=== PATIENT | female | born 1990 | race Two or more races ===

== ENCOUNTER 2020-04-24 15:15 | Inpatient (IN) | payer OTHER ==
[~2020-04-24] VITALS: Ht 157.5 cm; Wt 60.9 kg
[2020-04-25] MEDS: LACTATED RINGERS 1,000 ML IV SCH ×3 (05:40→19:23)
[2020-04-25] MEDS ORDERED: D5%-LACTATED RINGERS 1,000 ML IV SCH (05:40)
[2020-04-25] MEDS ORDERED: OXYTOCIN 30U/ 0.9% NaCL 500ML 500 ML IV ONE (05:40)
[2020-04-25] MEDS ORDERED: OXYTOCIN 30U/ 0.9% NaCL 500ML 500 ML IV PRN (05:40)
[2020-04-25] MEDS ORDERED: TERBUTALINE 1 MG/ML, 1ML IVPush PRN (06:00)
[2020-04-25] MEDS ORDERED: TERBUTALINE 1 MG/ML, 1ML SQ PRN (06:00)
[2020-04-25] MEDS ORDERED: ALUMINUM/MAG/SIMETHICONE 30 ML UDC PO PRN (06:00)
[2020-04-25] MEDS ORDERED: FENTANYL PF 100 MCG/2ML IV PRN (06:00)
[2020-04-25] MEDS ORDERED: FENTANYL PF 100 MCG/2ML IVPush PRN (06:00)
[2020-04-25 06:02] VITALS: BP 107/61
[2020-04-25] MEDS ORDERED: MISOPROSTOL 25 MCG TABLET ONE ×3 (06:19→15:17)
[2020-04-25] MEDS ORDERED: NEWBORN KIT ONE (06:20)
[2020-04-25 06:45] LABS: BASOPHILS # (AUTO) 0.03 x10^3/uL (0-0.1); BASOPHILS % (AUTO) 0 % (0-1); EOSINOPHILS # (AUTO) 0.05 x10^3/uL (0-0.4); EOSINOPHILS % (AUTO) 1 % (1-7); LYMPHOCYTES # (AUTO) 2.15 x10^3/uL (1-3.4); LYMPHOCYTES % (AUTO) 24 % (22-44); MD NO; MEAN CORPUSCULAR HEMOGLOBIN 29.6 pg (27.0-34.8); MEAN CORPUSCULAR HGB CONC 32.6 g/dL (32.4-35.8); MEAN PLATELET VOLUME 8.8 fL (7.4-10.4); MONOCYTES # (AUTO) 0.56 x10^3/uL (0.2-0.8); MONOCYTES % (AUTO) 6 % (2-9); NEUTROPHILS # (AUTO) 6.13 x10^3/uL (1.8-6.8); NEUTROPHILS % (AUTO) 69 % (42-75); PLATELET COUNT 224 x10^3/uL (130-400); RED CELL DISTRIBUTION WIDTH 14.4 % (9.6-15.2)
[2020-04-25] MEDS: MISOPROSTOL 25 MCG TABLET VG PRN ×3 (06:50→15:20)
[2020-04-25] MEDS ORDERED: OXYTOCIN 30U/ 0.9% NaCL 500ML 500 ML ONE (19:17)
[2020-04-26 02:23] VITALS: BP 104/58
[2020-04-26] MEDS ORDERED: FENTANYL PF 100 MCG/2ML ONE (04:41)
[2020-04-26] MEDS: LACTATED RINGERS 1,000 ML IV SCH ×3 (05:15→23:16)
[2020-04-26] MEDS ORDERED: FENTANYL/BUPIV./NS/PF 250 ML EPIDCONT ONE (05:44)
[2020-04-26] MEDS ORDERED: BUPIVACAINE 0.25% ONE (05:54)
[2020-04-26] MEDS ORDERED: LACTATED RINGERS 1,000 ML IV SCH ×2 (06:25→13:16)
[2020-04-26] MEDS ORDERED: FENTANYL/BUPIV./NS/PF 250 ML EPIDCONT SCH (06:25)
[2020-04-26] MEDS ORDERED: EPHEDRINE 50 MG/ML, 1ML IVPush PRN ×2 (06:30→15:30)
[2020-04-26] MEDS ORDERED: LACTATED RINGERS 1,000 ML IVBOLUS PRN (06:30)
[2020-04-26] MEDS ORDERED: EPHEDRINE 50 MG/ML, 1ML ONE (06:33)
[2020-04-26] MEDS ORDERED: METOCLOPRAMIDE 5 MG/ML, 2ML ONE (11:18)
[2020-04-26] MEDS ORDERED: SODIUM CITRATE/CITRIC ACID 30 ML UDC ONE (11:19)
[2020-04-26] MEDS ORDERED: SODIUM CITRATE/CITRIC ACID 30 ML UDC PO ONE (11:30)
[2020-04-26] MEDS ORDERED: LACTATED RINGERS 1,000 ML IVBOLUS ONE (11:30)
[2020-04-26] MEDS ORDERED: METOCLOPRAMIDE 5 MG/ML, 2ML IV ONE (11:30)
[2020-04-26] MEDS ORDERED: LIDOCAINE/MPF 2%-EPI 1:200K, 20 ML ONE (11:48)
[2020-04-26] MEDS ORDERED: morphine SULFATE/PF 0.5 MG/ML, 10ML ONE (12:02)
[2020-04-26] MEDS ORDERED: WATER-INJECTION,STERILE 10 ML IV ONE (12:03)
[2020-04-26] MEDS ORDERED: DEXAMETHASONE 4 MG/ML, 1ML ONE (12:03)
[2020-04-26] MEDS ORDERED: ONDANSETRON 2MG/ML, 2ML ONE (12:03)
[2020-04-26] MEDS ORDERED: KETOROLAC 30 MG/1 ML ONE (12:03)
[2020-04-26] MEDS ORDERED: OXYTOCIN 10 UNITS/ML, 1ML ONE (12:03)
[2020-04-26] MEDS ORDERED: CEFAZOLIN 1,000 MG ONE (12:03)
[2020-04-26] MEDS ORDERED: SODIUM CHLORIDE 0.9% PF 10ML ONE (12:15)
[2020-04-26] MEDS ORDERED: PHENYLEPHRINE 10 MG/ML ONE (12:15)
[2020-04-26] MEDS ORDERED: MISOPROSTOL 200 MCG TABLET ONE (12:33)
[2020-04-26] MEDS ORDERED: MEPERIDINE/PF 100 MG/ML ONE (13:25)
[2020-04-26] MEDS ORDERED: IBUPROFEN 600 MG TABLET PO PRN (13:30)
[2020-04-26] MEDS ORDERED: MEPERIDINE/PF 25MG/0.5ML IVPush PRN (13:30)
[2020-04-26] MEDS ORDERED: MISOPROSTOL 200 MCG TABLET PR PRN (13:30)
[2020-04-26] MEDS ORDERED: MEPERIDINE/PF 50 MG/ML IM PRN (13:30)
[2020-04-26] MEDS ORDERED: ONDANSETRON 2MG/ML, 2ML IV PRN (13:30)
[2020-04-26] MEDS ORDERED: KETOROLAC 30 MG/1 ML IV SCH (13:30)
[2020-04-26] MEDS ORDERED: SIMETHICONE 80 MG CHEW TAB PO PRN (13:30)
[2020-04-26] MEDS ORDERED: METHYLERGONOVINE 0.2 MG/ML IM PRN (13:30)
[2020-04-26] MEDS ORDERED: MISOPROSTOL 200 MCG TABLET PR STA (13:39)
[2020-04-26] MEDS ORDERED: MISOPROSTOL 200 MCG TABLET PR ONE (14:00)
[2020-04-26] MEDS: OXYTOCIN 30U/ 0.9% NaCL 500ML 500 ML IV SCH ×2 (15:01→23:16)
[2020-04-26 15:30] VITALS: BP 123/80
[2020-04-26] MEDS ORDERED: NALOXONE 0.4 MG/ML, 1ML IV PRN (15:30)
[2020-04-26] MEDS ORDERED: ONDANSETRON 2MG/ML, 2ML IVPush PRN (15:30)
[2020-04-26] MEDS ORDERED: NO SEDATIVES, TRANQUILIZERS OR ANTIEMETICS XX SCH (15:30)
[2020-04-26] MEDS ORDERED: DIPHENHYDRAMINE 50 MG/ML, 1ML IV PRN (15:30)
[2020-04-26] MEDS ORDERED: morphine SULFATE 10 MG/ML, 1ML IVPush PRN (15:30)
[2020-04-26] MEDS: KETOROLAC 30 MG/1 ML IVPush SCH (19:18)
[2020-04-26] MEDS: DOCUSATE 100 MG CAPSULE PO PRN (19:18)
[2020-04-26 19:30] VITALS: BP 114/75
[2020-04-26 21:57] LABS: BASOPHILS # (AUTO) 0.02 x10^3/uL (0-0.1); BASOPHILS % (AUTO) 0 % (0-1); EOSINOPHILS % (AUTO) 0 % (1-7); LYMPHOCYTES # (AUTO) 1.45 x10^3/uL (1-3.4); LYMPHOCYTES % (AUTO) 13 % (22-44); MD NO; MEAN CORPUSCULAR HGB CONC 33.5 g/dL (32.4-35.8); MEAN CORPUSCULAR VOLUME 89.7 fL (80-100); MEAN PLATELET VOLUME 9.1 fL (7.4-10.4); MONOCYTES # (AUTO) 0.73 x10^3/uL (0.2-0.8); MONOCYTES % (AUTO) 7 % (2-9); NEUTROPHILS # (AUTO) 8.83 x10^3/uL (1.8-6.8); NEUTROPHILS % (AUTO) 80 % (42-75); PLATELET COUNT 195 x10^3/uL (130-400); RED BLOOD COUNT 3.81 x10^6/uL (3.82-5.3); RED CELL DISTRIBUTION WIDTH 14.4 % (9.6-15.2)
[2020-04-27 01:00] VITALS: BP 121/73
[2020-04-27] MEDS: KETOROLAC 30 MG/1 ML IVPush SCH ×4 (01:00→12:33)
[2020-04-27 04:00] VITALS: BP 93/55
[2020-04-27 07:25] VITALS: BP 97/60
[2020-04-27] MEDS: LACTATED RINGERS 1,000 ML IV SCH (09:16)
[2020-04-27] MEDS: OXYTOCIN 30U/ 0.9% NaCL 500ML 500 ML IV SCH (09:16)
[2020-04-27 12:00] VITALS: BP 119/72
[2020-04-27] MEDS: PRENATAL VIT/IRON/FA 1 EACH TABLET PO SCH (12:20)
[2020-04-27] MEDS: DOCUSATE 100 MG CAPSULE PO PRN (12:20)
[2020-04-27] MEDS: OXYcodone IR 5MG TABLET PO PRN ×5 (12:21→21:52)
[2020-04-27] MEDS ORDERED: IBUPROFEN 600 MG TABLET ONE (14:26)
[2020-04-27] MEDS: IBUPROFEN 600 MG TABLET PO PRN ×2 (14:32→21:52)
[2020-04-27 16:00] VITALS: BP 119/72
[2020-04-27 20:00] VITALS: BP 105/73
[2020-04-28] MEDS: IBUPROFEN 600 MG TABLET PO PRN ×2 (06:02→11:51)
[2020-04-28] MEDS: OXYcodone IR 5MG TABLET PO PRN ×2 (06:02→11:52)
[2020-04-28 08:00] VITALS: BP 107/68
[2020-04-28] MEDS: DOCUSATE 100 MG CAPSULE PO PRN (09:36)
[2020-04-28] MEDS: PRENATAL VIT/IRON/FA 1 EACH TABLET PO SCH (09:36)
[2020-04-28] MEDS ORDERED: IBUP-1222 PO (10:11)
[2020-04-28] MEDS ORDERED: DOCU-131 PO (10:17)
[2020-04-28] MEDS ORDERED: OXYC5TAB3 PO (10:19)
[2020-04-28] MEDS ORDERED: IBUPROFEN 600 MG TABLET PO PRN (13:30)
== END 2020-04-28 11:56 | disposition home or self-care (01) | DRG 788 ==
LOC: LDIP 04-25 05:36 → 2NW 04-26 15:27
PROVIDERS: ADMIT Obstetrics & Gynecology; ATTEND Obstetrics & Gynecology
PROC: 10D00Z1 Extraction of Products of Conception, Low, Open Approach (ICD-10-PCS; principal; 2020-04-26)
DX: O61.9 Failed induction of labor, unspecified (principal); Z3A.39 39 weeks gestation of pregnancy; Z37.0 Single live birth; Z88.8 Allergy status to other drugs, medicaments and biological substances
CPT/HCPCS: 36415; J7121; 85025; 86592; 86850; 86900; 87635; G0378; J0690; J1100; J1885; J2175; J2274; J2405; J3010; J1200; J2370; J2590; J2765; J7120